=== PATIENT | male | born 1955 | race African-American/Black ===

== ENCOUNTER 2021-12-06 12:09 | Inpatient (IN) | payer MEDICARE, MEDICAID ==
[~2021-12-06] VITALS: Ht 175.3 cm; Wt 65.0 kg
--- NOTE | 2021-12-06 12:13 | PHYS DOC ---
Past Medical History Past Medical History: Anxiety, High Cholesterol, Heart Disease, Hypertension Past Medical History Congestive heart failure Smoking Status: Current Every Day Smoker Alcohol Use: Occasionally Drug Use: Cocaine General Adult EDM: Chief Complaint: SHORTNESS OF BREATH HPI: HPI: Patient is a 66 year old male who presents with multiple complaints. He reports that he has had lower extremity swelling for quite some time. He also has been complaining of shortness of breath for almost a year. He does report having a mild, dry cough, which she has had for over a year as well. He denies sputum production or hemoptysis. He denies any chest pain. He denies dizziness or diaphoresis. He denies abdominal pain, nausea or vomiting. He has a history of cardiomyopathy and congestive heart failure, he has previously been seen at [facility]. He last saw a physician and mergers and acquisitions consultant there in December 2020. He has not taken any of his medication since the end of December 2020. He reports that his family made him come in to be seen today because they are worried about his kidneys failing. He admits to smoking tobacco, and he frequently uses cocaine, last used 2 days ago. He has been intermittently using one of his family members "water pills" and he describes it as being likely 25 mg, so it sounds like he may be taking someone else's hydrochlorothiazide intermittently. Review of Systems: Review of Systems: Constitutional: Denies fever or chills. [] Eyes: Denies change in visual acuity. [] HENT: Denies nasal congestion or sore throat. [] Respiratory: Cough and dyspnea. No wheezing, sputum production or hemoptysis reported. Cardiovascular: Denies chest pain. Bilateral lower extremity edema. GI: Denies abdominal pain, nausea, vomiting : Denies urinary symptoms. Musculoskeletal: Denies back pain or joint pain. Lateral lower extremity swelling. Integument: Denies rash. [] Neurologic: Denies headache, focal weakness or sensory changes. [] Psychiatric: Anxiety as it pertains to current illness. Admits to cocaine use. Heart Score: C/O Chest Pain: No Risk Factors: Risk Factors: DM, Current or recent (<one month) smoker, HTN, HLP, family history of CAD, obesity. Risk Scores: Score 0 - 3: 2.5% MACE over next 6 weeks - Discharge Home Score 4 - 6: 20.3% MACE over next 6 weeks - Admit for Clinical Observation Score 7 - 10: 72.7% MACE over next 6 weeks - Early Invasive Strategies Physical Exam: PE: Constitutional: He is frail and chronically ill-appearing, appears older than stated age, he is mildly moderately acutely ill-appearing. HENT: Normocephalic, atraumatic, oropharynx is patent and clear Eyes: Conjunctiva normal, no discharge. No scleral icterus. Neck: Trachea is midline, neck is supple, JVD noted Cardiovascular: Irregularly irregular, tachycardic, +2 radial and +2 posterior tibial pulses bilaterally. Bilateral, symmetric lower extremity pitting edema noted. Lungs & Thorax: Tachypnea is noted. Bilateral fine rales noted in the bases and midlung estrada. No wheezes. No stridor. Speaks in full and clear sentences. No central cyanosis is noted. Abdomen: Abdomen is soft, mildly distended, no obvious ascites or fluid wave, hepatomegaly is noted, no tenderness to palpation. No palpable pulsatile mass. Skin: Warm, dry, no erythema, no rash. Or skin turgor. No jaundice. Back: No tenderness, no CVA tenderness. [] Extremities: Bilateral, symmetric 2+ lower extremity pitting edema. No periorbital or facial edema. No upper extremity edema. Neurologic: Alert and oriented X 3, normal motor function, normal sensory function, no focal deficits noted. [] Psychologic: He is anxious but cooperative. EKG: EKG: EKG is interpreted at 1231 Rhythm is irregularly irregular, AF with RVR Rate is 112 bpm Occasional PVCs LVH No STEMI EKG is interpreted at 1649 Rhythm is irrgularly irregular, AF Rate is 96 bpm LVH No STEMI Radiology/Procedures: Radiology/Procedures: IMAGING REPORT Signed PATIENT: AUBREY GARCIA ACCOUNT: [id number] : 1955 LOCATION: ER AGE: 66 SEX: M EXAM STATUS: REG ER ORD. PHYSICIAN: EL NAJERA DO REASON: dyspnea, cough PROCEDURE: PORTABLE CHEST 1V AP chest. HISTORY: Dyspnea, cough AP view was taken of the chest. Heart is enlarged. There is atherosclerotic magda nge of the aortic arch. There is a trace of pleural effusion on the right. There are interstitial infiltrates or pulmonary edema in the lungs more prominent on the right than on the left. IMPRESSION: 1. Cardiomegaly. 2. Trace right pleural effusion. 3. Interstitial infiltrates or edema. Electronically signed by: Vince Iraheta MD (12/06/2021 12:59 PM) [facility] DICTATED and SIGNED BY: VINCE IRAHETA MD DATE: 12/06/21 [id number] 0 Course & Med Decision Making: Course & Med Decision Making Pertinent Labs and Imaging studies reviewed. (See chart for details) IV diltiazem boluses given. Heart rate decreased to the 70s and 80s. Minimal improvement of blood pressure. Nitropaste is ordered. IV nitro glycerin drip is ordered. He is given a dose of IV furosemide. Initially, there appeared to be more modest improvement in blood pressure, but systolic blood pressure increased again to the 200s, so diltiazem drip is ordered. He is given a dose of oral aspirin. He manifests no evidence of hypoxia. I have ordered IV heparin protocol. I consulted Dr. Hahn of cardiology. He saw the patient. He recommends switching to subcu Lovenox, he changed the order and notify the nursing staff. The patient does appear to be resting more comfortably at this time. I have discussed all of the findings, differential diagnosis and plan of care with the patient. He is quite ill and requires hospitalization. He is comfortable with the plan of care. He is accepted for admission by Dr. Bhagat. Susie Disclaimer: Susie Disclaimer: This electronic medical record was generated, in whole or in part, using a voice recognition dictation system. Departure Departure Impression: Primary Impression: Hypertensive emergency Additional Impressions: Acute exacerbation of congestive heart failure Qualified Codes: I50.9 - Heart failure, unspecified Atrial fibrillation with RVR Elevated troponin level Noncompliance History of cocaine use Disposition: ADMITTED INPATIENT Admitting Physician: MARY (Dr. Bhagat) Condition: GUARDED REINALDOEL DO Dec 06, 2021 12:13
[2021-12-06] MEDS ORDERED: ASPIRIN ENTERIC COATED 325 MG TABLET.DR. PO ONE (12:45)
[2021-12-06] MEDS ORDERED: NITROGLYCERIN OINT 1 GM PACKET. TP ONE (12:45)
--- NOTE | 2021-12-06 13:01 | RAD ---
AP chest. HISTORY: Dyspnea, cough AP view was taken of the chest. Heart is enlarged. There is atherosclerotic change of the aortic arch . There is a trace of pleural effusion on the right. There are interstitial infiltrates or pulmonary edema in the lungs more prominent on the right than on the left. IMPRESSION: 1. Cardiomegaly. 2. Trace right pleural effusion. 3. Interstitial infiltrates or edema. Electronically signed by: Vince Iraheta MD (12/06/2021 12:59 PM) [facility]
[2021-12-06 13:26] LABS: BASO % 1 % (0-3); EOS # 0.1 x10^3/uL (0.0-0.7); EOS % 2 % (0-3); HEMATOCRIT 47.7 % (39.0-53.0); HEMOGLOBIN 15.6 g/dL (13.0-17.5); LYMPH # 1.6 x10^3/uL (1.0-4.8); LYMPH % 24 % (24-48); MEAN CORPUSCULAR HEMOGLOBIN 32 pg (25-35); MEAN CORPUSCULAR HGB CONC 33 g/dL (31-37); MEAN CORPUSCULAR VOLUME 97 fL (79-100); MONO # 0.5 x10^3/uL (0.0-1.1); MONO % 7 % (0-9); NEUT # 4.4 x10^3/uL (1.8-7.7); NEUT % 67 % (31-73); PLATELET COUNT 125 x10^3/uL (140-400); RED BLOOD COUNT 4.91 x10^6/uL (4.30-5.70); RED CELL DISTRIBUTION WIDTH 14.5 % (11.5-14.5); WHITE BLOOD COUNT 6.7 x10^3/uL (4.0-11.0)
[2021-12-06 13:37] LABS: CALCIUM 9.5 mg/dL (8.5-10.1); CREATININE 1.5 mg/dL (0.7-1.3); GFR 56.8; POTASSIUM 4.3 mmol/L (3.5-5.1)
[2021-12-06 13:43] LABS: INFLUENZA A PATIENT NEGATIVE (NEGATIVE); INFLUENZA B PATIENT NEGATIVE (NEGATIVE)
[2021-12-06 13:52] LABS: ALBUMIN 3.5 g/dL (3.4-5.0); ALBUMIN/GLOBULIN RATIO 0.8 (1.0-1.7); MAGNESIUM 2.1 mg/dL (1.8-2.4); TOTAL BILIRUBIN 1.5 mg/dL (0.2-1.0); TOTAL PROTEIN 7.9 g/dL (6.4-8.2)
[2021-12-06] MEDS ORDERED: NITROGLYCERIN PREMIX 250 ML IV ONE (14:15)
[2021-12-06] MEDS ORDERED: FUROSEMIDE 20 MG/2 ML VIAL. IVP ONE ×2 (14:15→18:45)
[2021-12-06] MEDS ORDERED: HEPARIN for IV BOLUS 10,000 UNIT/10 ML VIAL. IV PRN (15:15)
[2021-12-06] MEDS ORDERED: HEPARIN 25,000UTS/250ML PREMIX 250 ML IV PRN (15:15)
[2021-12-06 15:35] LABS: PROTHROMBIN TIME PATIENT 13.4 SEC (11.7-14.0)
--- NOTE | 2021-12-06 16:15 | PDOC1 ---
History and Physical Date of Service: DOS: DATE: 12/06/21 TIME: 16:10 Chief Complaint: Chief Complain: Multiple complaints History of Present Illness: HPI: Most of the history obtained from chart review and discussion with the ED physician due to patient's lethargy: 66-year-old male with past medical history of hypertension, heart disease, dyslipidemia, smoker who comes in with multiple complaints. Patient states that he had some lower extremity swelling for some time and shortness of breath for almost a year. Patient states that he does have history of CHF and cardiomyopathy which she was seen at [facility]. Patient states he has not taken any of his medications since end of December 2020. He has seen a technical coordinator at [facility]. His family actually encouraged him to come to get evaluated. He does admit that he does smoke frequently and he uses cocaine as well which was last used 2 days ago. Denies fevers, chest pain, shortness of breath, abdominal pain, diarrhea, dysuria, hematuria or syncope or palpitations. Past Medical/Surgical History: PMH/PSH: Past Medical History: Anxiety, High Cholesterol, Heart Disease, Hypertension Past Medical History: Congestive heart failure Allergies: Allergies: Coded Allergies: No Known Drug Allergies (Unverified , 12/06/21) Family History: Family History: Reviewed with no relevant findings Social History: Social History: Smoking Status: Current Every Day Smoker Alcohol Use: Occasionally Drug Use: Cocaine Current Medications: Current Medications Current Medications Nitroglycerin (Nitro-Bid Oint) 1 inch 1X ONCE TP Last administered on 12/06/21at 12:51; Start 12/06/21 at 12:45; Stop 12/06/21 at 12:46; Status DC Aspirin (Ecotrin) 325 mg 1X ONCE PO Last administered on 12/06/21at 12:59; Start 12/06/21 at 12:45; Stop 12/06/21 at 12:46; Status DC Lorazepam (Ativan Inj) 1 mg 1X ONCE IVP Last administered on 12/06/21at 12:59; Start 12/06/21 at 12:45; Stop 12/06/21 at 12:46; Status DC Diltiazem HCl (Cardizem Iv Push) 10 mg 1X ONCE IVP Last administered on 12/06at 13:46; Start 12/06/21 at 13:45; Stop 12/06/21 at 13:46; Status DC Furosemide (Lasix) 20 mg 1X ONCE IVP Last administered on 12/06/21at 15:14; Start 12/06/21 at 14:15; Stop 12/06/21 at 14:16; Status DC Nitroglycerin/ Dextrose 250 ml @ 1.5 mls/hr 1X ONCE IV Last administered on 12/06/21at 15:05; Start 12/06/21 at 14:15; Stop 12/13/21 at 12:54 Heparin Sodium/ Dextrose 250 ml @ 8.64 mls/hr CONT PRN IV PER PROTOCOL; Start 12/06/21 at 15:15 Heparin Sodium (Porcine) (Heparin Sodium) 1,800 unit PRN Q6HRS PRN IV FOR UFH LEVEL LESS THAN 0.2; Start 12/06/21 at 15:15 ROS: Review of Systems Review of System Limited due to patient's lethargy Physical Exam: Vital Signs: Vital Signs Date Time Temp Pulse Resp B/P (MAP) Pulse Ox O2 Delivery O2 Flow Rate FiO2 12/06/21 13:46 100 244/146 12/06/21 12:31 98.7 16 100 Room Air 98.7 Physcial Exam: General: Well developed, well nourished, lethargic HEENT: Pupils equally round and reactive to light, EOMI, no discharge, normal conjunctiva Neck: Supple, no nuchal rigidity, no JVD, trachea midline, no tenderness Cardiac: RRR, no murmurs, no gallops, no rubs Chest/Lungs: CTAB, no wheeze, no rhonchi, no crackles Abdomen: soft, non-distended, no guarding, no peritoneal signs, non-tender Back: No tenderness Extremities: +3 bilateral pedal edema, pulses intact, non-tender,capillary refill <3 sec bilateral upper and lower extremities, Neuro: Alert and oriented x 4, no focal deficits, normal speech Labs: Labs: Laboratory Tests Test 12/06/21 12:58 White Blood Count 6.7 x10^3/uL (4.0-11.0) Red Blood Count 4.91 x10^6/uL (4.30-5.70) Hemoglobin 15.6 g/dL (13.0-17.5) Hematocrit 47.7 % (39.0-53.0) Mean Corpuscular Volume 97 fL (79-100) Mean Corpuscular Hemoglobin 32 pg (25-35) Mean Corpuscular Hemoglobin Concent 33 g/dL (31-37) Red Cell Distribution Width 14.5 % (11.5-14.5) Platelet Count 125 x10^3/uL (140-400) Neutrophils (%) (Auto) 67 % (31-73) Lymphocytes (%) (Auto) 24 % (24-48) Monocytes (%) (Auto) 7 % (0-9) Eosinophils (%) (Auto) 2 % (0-3) Basophils (%) (Auto) 1 % (0-3) Neutrophils # (Auto) 4.4 x10^3/uL (1.8-7.7) Lymphocytes # (Auto) 1.6 x10^3/uL (1.0-4.8) Monocytes # (Auto) 0.5 x10^3/uL (0.0-1.1) Eosinophils # (Auto) 0.1 x10^3/uL (0.0-0.7) Basophils # (Auto) 0.0 x10^3/uL (0.0-0.2) Prothrombin Time 13.4 SEC (11.7-14.0) Prothromb Time International Ratio 1.0 (0.8-1.1) Activated Partial Thromboplast Time 29 SEC (24-38) Sodium Level 137 mmol/L (136-145) Potassium Level 4.3 mmol/L (3.5-5.1) Chloride Level 101 mmol/L (98-107) Carbon Dioxide Level 32 mmol/L (21-32) Anion Gap 4 (6-14) Blood Urea Nitrogen 40 mg/dL (8-26) Creatinine 1.5 mg/dL (0.7-1.3) Estimated GFR (Cockcroft-Gault) 56.8 BUN/Creatinine Ratio 27 (6-20) Glucose Level 89 mg/dL (70-99) Lactic Acid Level 1.6 mmol/L (0.4-2.0) Calcium Level 9.5 mg/dL (8.5-10.1) Magnesium Level 2.1 mg/dL (1.8-2.4) Total Bilirubin 1.5 mg/dL (0.2-1.0) Aspartate Amino Transf (AST/SGOT) 47 U/L (15-37) Alanine Aminotransferase (ALT/SGPT) 42 U/L (16-63) Alkaline Phosphatase 185 U/L (46-116) Creatine Kinase 176 U/L (39-308) Troponin I High Sensitivity 871 ng/L (4-75) FZ-Ueg-C-Type Natriuretic Peptide 73455 pg/mL (0-124) Total Protein 7.9 g/dL (6.4-8.2) Albumin 3.5 g/dL (3.4-5.0) Albumin/Globulin Ratio 0.8 (1.0-1.7) Influenza Type A Antigen Negative (NEGATIVE) Influenza Type B Antigen Negative (NEGATIVE) SARS-CoV-2 Antigen (Rapid) Negative (NEGATIVE) Laboratory Tests Test 12/06/21 12:58 White Blood Count 6.7 x10^3/uL (4.0-11.0) Red Blood Count 4.91 x10^6/uL (4.30-5.70) Hemoglobin 15.6 g/dL (13.0-17.5) Hematocrit 47.7 % (39.0-53.0) Mean Corpuscular Volume 97 fL (79-100) Mean Corpuscular Hemoglobin 32 pg (25-35) Mean Corpuscular Hemoglobin Concent 33 g/dL (31-37) Red Cell Distribution Width 14.5 % (11.5-14.5) Platelet Count 125 x10^3/uL (140-400) Neutrophils (%) (Auto) 67 % (31-73) Lymphocytes (%) (Auto) 24 % (24-48) Monocytes (%) (Auto) 7 % (0-9) Eosinophils (%) (Auto) 2 % (0-3) Basophils (%) (Auto) 1 % (0-3) Neutrophils # (Auto) 4.4 x10^3/uL (1.8-7.7) Lymphocytes # (Auto) 1.6 x10^3/uL (1.0-4.8) Monocytes # (Auto) 0.5 x10^3/uL (0.0-1.1) Eosinophils # (Auto) 0.1 x10^3/uL (0.0-0.7) Basophils # (Auto) 0.0 x10^3/uL (0.0-0.2) Prothrombin Time 13.4 SEC (11.7-14.0) Prothromb Time International Ratio 1.0 (0.8-1.1) Activated Partial Thromboplast Time 29 SEC (24-38) Sodium Level 137 mmol/L (136-145) Potassium Level 4.3 mmol/L (3.5-5.1) Chloride Level 101 mmol/L (98-107) Carbon Dioxide Level 32 mmol/L (21-32) Anion Gap 4 (6-14) Blood Urea Nitrogen 40 mg/dL (8-26) Creatinine 1.5 mg/dL (0.7-1.3) Estimated GFR (Cockcroft-Gault) 56.8 BUN/Creatinine Ratio 27 (6-20) Glucose Level 89 mg/dL (70-99) Lactic Acid Level 1.6 mmol/L (0.4-2.0) Calcium Level 9.5 mg/dL (8.5-10.1) Magnesium Level 2.1 mg/dL (1.8-2.4) Total Bilirubin 1.5 mg/dL (0.2-1.0) Aspartate Amino Transf (AST/SGOT) 47 U/L (15-37) Alanine Aminotransferase (ALT/SGPT) 42 U/L (16-63) Alkaline Phosphatase 185 U/L (46-116) Creatine Kinase 176 U/L (39-308) Troponin I High Sensitivity 871 ng/L (4-75) GO-Shk-P-Type Natriuretic Peptide 23779 pg/mL (0-124) Total Protein 7.9 g/dL (6.4-8.2) Albumin 3.5 g/dL (3.4-5.0) Albumin/Globulin Ratio 0.8 (1.0-1.7) Influenza Type A Antigen Negative (NEGATIVE) Influenza Type B Antigen Negative (NEGATIVE) SARS-CoV-2 Antigen (Rapid) Negative (NEGATIVE) Images: Images PROCEDURE: PORTABLE CHEST 1V AP chest. HISTORY: Dyspnea, cough AP view was taken of the chest. Heart is enlarged. There is atherosclerotic change of the aortic arch. There is a trace of pleural effusion on the right. There are interstitial infiltrates or pulmonary edema in the lungs more prominent on the right than on the left. IMPRESSION: 1. Cardiomegaly. 2. Trace right pleural effusion. 3. Interstitial infiltrates or edema. Assessment/Plan Assessment/Plan Problem List: Hypertensive urgency Afib RVR Acute GIB ANILA due to vasomotor nephropathy Elevated BNP suggestive of acute volume overload Acute CHF exacerbation Cocaine positivity Elevated troponin suggestive of type II demand ischemia Thrombocytopenia History of CHF, unknown EF History of hypertension History of cocaine and tobacco abuse Admit to hospitalist service for further management Continue nitro drip IV antihypertensive regimen to maintain systolic blood pressures between [id number] Continue telemetry monitoring Continue diltiazem Continue heparin drip for DVT prophylaxis Protonix GI prophylaxis Trend troponins Consider cardiology consult if rising troponins Cardiac diet CODE STATUS assumed full code Discussed with RN and SW Disposition inpatient management as above DPOA: Cousin A total of 45 minutes of critical care time was spent in reviewing chart, labs, and images. Discussed with RN and SW. Justifications for Admission Other Justification CALLIE SANDHU MD Dec 06, 2021 16:15
[2021-12-06] MEDS: LABETALOL 20 MG/4 ML DISP.SYRIN. IVP ONE ×2 (16:45→17:13)
[2021-12-06 17:45] VITALS: BP 144/86
[2021-12-06] MEDS ORDERED: ONDANSETRON PF 4 MG/2 ML VIAL. IVP PRN (18:45)
[2021-12-06] MEDS ORDERED: SENNOSIDES 8.6 MG TABLET PO PRN (18:45)
[2021-12-06] MEDS ORDERED: ACETAMINOPHEN 325 MG TABLET. PO PRN (18:45)
[2021-12-06] MEDS ORDERED: DOCUSATE SODIUM 100 MG CAPSULE. PO PRN (18:45)
[2021-12-06] MEDS ORDERED: diphenhydrAMINE 50 MG/ML VIAL IVP PRN (18:45)
[2021-12-06] MEDS ORDERED: diphenhydrAMINE HCL 25 MG CAPSULE PO PRN ×2 (18:45)
[2021-12-06] MEDS ORDERED: PROCHLORPERAZINE 10 MG/2 ML VIAL. IV PRN (18:45)
[2021-12-06] MEDS ORDERED: DEXTROSE 50% 25 GM / 50ML DISP.SYRIN. IV PRN (18:45)
[2021-12-06] MEDS ORDERED: ZOLPIDEM 5 MG TABLET. PO PRN (18:45)
[2021-12-06] MEDS ORDERED: LORazepam 0.5 MG TABLET PO PRN (18:45)
[2021-12-06 19:36] VITALS: BP 167/120
--- NOTE | 2021-12-06 21:33 | EKG ---
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
[2021-12-06 23:09] VITALS: BP 178/101
[2021-12-07 02:09] VITALS: BP 148/108
[2021-12-07 04:34] LABS: BASO # 0.1 x10^3/uL (0.0-0.2); BASO % 1 % (0-3); EOS # 0.1 x10^3/uL (0.0-0.7); EOS % 2 % (0-3); HEMATOCRIT 38.6 % (39.0-53.0); HEMOGLOBIN 12.9 g/dL (13.0-17.5); LYMPH # 1.4 x10^3/uL (1.0-4.8); LYMPH % 24 % (24-48); MEAN CORPUSCULAR HEMOGLOBIN 32 pg (25-35); MEAN CORPUSCULAR HGB CONC 33 g/dL (31-37); MEAN CORPUSCULAR VOLUME 96 fL (79-100); MONO # 0.5 x10^3/uL (0.0-1.1); MONO % 8 % (0-9); NEUT # 3.8 x10^3/uL (1.8-7.7); NEUT % 65 % (31-73); PLATELET COUNT 108 x10^3/uL (140-400); RED CELL DISTRIBUTION WIDTH 14.2 % (11.5-14.5); WHITE BLOOD COUNT 5.8 x10^3/uL (4.0-11.0)
[2021-12-07 05:30] LABS: CALCIUM 8.3 mg/dL (8.5-10.1); CREATININE 1.6 mg/dL (0.7-1.3); GFR 52.8; MAGNESIUM 1.8 mg/dL (1.8-2.4); PHOSPHORUS 3.8 mg/dL (2.6-4.7); POTASSIUM 4.3 mmol/L (3.5-5.1)
[2021-12-07] MEDS: NITROGLYCERIN PREMIX 250 ML IV PRN (05:33)
[2021-12-07 07:00] VITALS: BP 154/81
[2021-12-07] MEDS: PANTOPRAZOLE 40 MG TABLET.DR. PO SCH (09:43)
[2021-12-07 11:00] VITALS: BP 140/95
--- NOTE | 2021-12-07 13:08 | PDOC ---
CARDIOLOGY PROGRESS NOTE SUBJECTIVE: No acute events overnight. The patient remains somnolent. Denies any current chest pain or dyspnea. OBJECTIVE: Vital Signs/I&O: Vital Signs Date Time Temp Pulse Resp B/P (MAP) Pulse Ox O2 Delivery O2 Flow Rate FiO2 12/07/21 11:00 97.6 62 18 140/95 (110) 97 Room Air 97.6 I & O 12/06/21 12/06/21 12/07/21 15:00 23:00 07:00 Intake Total 210 ml 600 ml Output Total 1675 ml 525 ml Balance -1465 ml 75 ml Objective: In general he is sleepy but arousable Head and neck exam is unremarkable Cardiac irregular rhythm without any obvious murmurs rubs or gallops. Abdomen is soft outputted to light extremities no edema Neurologic exam deferred Musculoskeletal no trauma CURRENT MEDICATIONS: Current Medications Medications (Trade) Dose Ordered Sig/Isaias Route PRN Reason Start Time Stop Time Status Last Admin Dose Admin Diltiazem HCl (Cardizem Iv Push) 10 mg 1X ONCE IVP 12/06/21 13:45 12/06/21 13:46 DC 12/06/21 13:46 Furosemide (Lasix) 20 mg 1X ONCE IVP 12/06/21 14:15 12/06/21 14:16 DC 12/06/21 15:14 Nitroglycerin/ Dextrose 250 ml @ 1.5 mls/hr 1X ONCE IV 12/06/21 14:15 12/13/21 12:54 12/06/21 15:05 Diltiazem HCl 125 mg/Sodium Chloride 125 ml @ 5 mls/hr CONT PRN IV PER PROTOCOL 12/06/21 16:45 12/07/21 01:15 Pantoprazole Sodium (Protonix) 40 mg DAILYAC PO 12/07/21 07:30 12/07/21 09:43 Furosemide (Lasix) 20 mg 1X ONCE IVP 12/06/21 18:45 12/06/21 18:46 DC 12/06/21 19:42 Nitroglycerin/ Dextrose 250 ml @ 1.5 mls/hr CONT PRN IV SEE I/O RECORD 12/07/21 05:30 12/07/21 05:33 DIAGNOSTIC TESTING: Laboratory studies reviewed. Telemetry reviewed. Labs: Laboratory Tests 12/07/21 01:30 Laboratory Tests Test 12/07/21 01:00 12/07/21 01:30 Troponin I High Sensitivity 700 ng/L (4-75) H White Blood Count 5.8 x10^3/uL (4.0-11.0) Red Blood Count 4.00 x10^6/uL (4.30-5.70) L Hemoglobin 12.9 g/dL (13.0-17.5) L Hematocrit 38.6 % (39.0-53.0) L Mean Corpuscular Volume 96 fL (79-100) Mean Corpuscular Hemoglobin 32 pg (25-35) Mean Corpuscular Hemoglobin Concent 33 g/dL (31-37) Red Cell Distribution Width 14.2 % (11.5-14.5) Platelet Count 108 x10^3/uL (140-400) L Neutrophils (%) (Auto) 65 % (31-73) Lymphocytes (%) (Auto) 24 % (24-48) Monocytes (%) (Auto) 8 % (0-9) Eosinophils (%) (Auto) 2 % (0-3) Basophils (%) (Auto) 1 % (0-3) Neutrophils # (Auto) 3.8 x10^3/uL (1.8-7.7) Lymphocytes # (Auto) 1.4 x10^3/uL (1.0-4.8) Monocytes # (Auto) 0.5 x10^3/uL (0.0-1.1) Eosinophils # (Auto) 0.1 x10^3/uL (0.0-0.7) Basophils # (Auto) 0.1 x10^3/uL (0.0-0.2) Sodium Level 137 mmol/L (136-145) Potassium Level 4.3 mmol/L (3.5-5.1) Chloride Level 100 mmol/L (98-107) Carbon Dioxide Level 30 mmol/L (21-32) Anion Gap 7 (6-14) Blood Urea Nitrogen 43 mg/dL (8-26) H Creatinine 1.6 mg/dL (0.7-1.3) H Estimated GFR (Cockcroft-Gault) 52.8 Glucose Level 127 mg/dL (70-99) H Calcium Level 8.3 mg/dL (8.5-10.1) L Phosphorus Level 3.8 mg/dL (2.6-4.7) ASSESSMENT: 1. Acute hypertensive urgency 2. Atrial fibrillation with rapid ventricular response 3. Polysubstance abuse 4. Probable cardiomyopathy PLAN: 1. Continue Lasix for diuresis 2. Continue nitroglycerin and diltiazem drips. We will plan for an echocardiog yaniv tomorrow based on his EF we will plan for further treatment. 3. Supportive care for now Justicifation of Admission Dx: Justifications for Admission: Justification of Admission Dx: N/A TARAS JETER MD Dec 07, 2021 13:08
--- NOTE | 2021-12-07 13:13 | PDOC ---
[employer] PROGRESS NOTE Date of Service DOS: DATE: 12/07/21 TIME: 13:11 Chief Complaint Chief Complaint Problem List: Hypertensive urgency Afib RVR ANILA due to vasomotor nephropathy Elevated BNP suggestive of acute volume overload Acute CHF exacerbation Cocaine positivity Elevated troponin suggestive of type II demand ischemia Thrombocytopenia History of CHF, unknown EF History of hypertension History of cocaine and tobacco abuse Admit to hospitalist service for further management Continue nitro drip IV antihypertensive regimen to maintain systolic blood pressures between [id number] Continue telemetry monitoring Continue diltiazem Continue heparin drip for DVT prophylaxis Protonix GI prophylaxis Trend troponins Cardiology consult Cardiac diet CODE STATUS assumed full code Discussed with RN and SW Disposition inpatient management as above DPOA: Cousin History of Present Illness History of Present Illness 12/07 Patient evaluated and examined at bedside. He was resting in bed eating his lunch. No complaints to me. Still on several drips. Cards consulted. Blood pressure improved continue heparin drip. Also on nitro drip. Echo ordered. Vitals/I&O Vitals/I&O: Vital Signs Date Time Temp Pulse Resp B/P (MAP) Pulse Ox O2 Delivery O2 Flow Rate FiO2 12/07/21 11:00 97.6 62 18 140/95 (110) 97 Room Air 97.6 I & O 12/06/21 12/06/21 12/07/21 15:00 23:00 07:00 Intake Total 210 ml 600 ml Output Total 1675 ml 525 ml Balance -1465 ml 75 ml Physical Exam General: Alert, Oriented X3, Cooperative Heart: Regular rate, Normal S1, Normal S2 Lungs: Clear Abdomen: Normal bowel sounds, Soft, No tenderness Extremities: Other (lower extremity edema) Skin: No significant lesion Labs Labs: Laboratory Tests Test 12/07/21 01:00 12/07/21 01:30 Troponin I High Sensitivity 700 ng/L (4-75) White Blood Count 5.8 x10^3/uL (4.0-11.0) Red Blood Count 4.00 x10^6/uL (4.30-5.70) Hemoglobin 12.9 g/dL (13.0-17.5) Hematocrit 38.6 % (39.0-53.0) Mean Corpuscular Volume 96 fL (79-100) Mean Corpuscular Hemoglobin 32 pg (25-35) Mean Corpuscular Hemoglobin Concent 33 g/dL (31-37) Red Cell Distribution Width 14.2 % (11.5-14.5) Platelet Count 108 x10^3/uL (140-400) Neutrophils (%) (Auto) 65 % (31-73) Lymphocytes (%) (Auto) 24 % (24-48) Monocytes (%) (Auto) 8 % (0-9) Eosinophils (%) (Auto) 2 % (0-3) Basophils (%) (Auto) 1 % (0-3) Neutrophils # (Auto) 3.8 x10^3/uL (1.8-7.7) Lymphocytes # (Auto) 1.4 x10^3/uL (1.0-4.8) Monocytes # (Auto) 0.5 x10^3/uL (0.0-1.1) Eosinophils # (Auto) 0.1 x10^3/uL (0.0-0.7) Basophils # (Auto) 0.1 x10^3/uL (0.0-0.2) Sodium Level 137 mmol/L (136-145) Potassium Level 4.3 mmol/L (3.5-5.1) Chloride Level 100 mmol/L (98-107) Carbon Dioxide Level 30 mmol/L (21-32) Anion Gap 7 (6-14) Blood Urea Nitrogen 43 mg/dL (8-26) Creatinine 1.6 mg/dL (0.7-1.3) Estimated GFR (Cockcroft-Gault) 52.8 Glucose Level 127 mg/dL (70-99) Calcium Level 8.3 mg/dL (8.5-10.1) Phosphorus Level 3.8 mg/dL (2.6-4.7) Magnesium Level 1.8 mg/dL (1.8-2.4) Assessment and Plan Assessmemt and Plan Problems Medical Problems: (1) Acute exacerbation of congestive heart failure Status: Acute (2) Atrial fibrillation with RVR Status: Acute (3) Elevated troponin level Status: Acute (4) History of cocaine use Status: Acute (5) Hypertensive emergency Status: Acute (6) Noncompliance Status: Acute Comment Review of Relevant I have reviewed the following items liya (where applicable) has been applied. Medications: Current Medications Medications (Trade) Dose Ordered Sig/Isaias Route PRN Reason Start Time Stop Time Status Last Admin Dose Admin Diltiazem HCl (Cardizem Iv Push) 10 mg 1X ONCE IVP 12/06/21 13:45 12/06/21 13:46 DC 12/06/21 13:46 Furosemide (Lasix) 20 mg 1X ONCE IVP 12/06/21 14:15 12/06/21 14:16 DC 12/06/21 15:14 Nitroglycerin/ Dextrose 250 ml @ 1.5 mls/hr 1X ONCE IV 12/06/21 14:15 12/13/21 12:54 12/06/21 15:05 Diltiazem HCl 125 mg/Sodium Chloride 125 ml @ 5 mls/hr CONT PRN IV PER PROTOCOL 12/06/21 16:45 12/07/21 01:15 Pantoprazole Sodium (Protonix) 40 mg DAILYAC PO 12/07/21 07:30 12/07/21 09:43 Furosemide (Lasix) 20 mg 1X ONCE IVP 12/06/21 18:45 12/06/21 18:46 DC 12/06/21 19:42 Nitroglycerin/ Dextrose 250 ml @ 1.5 mls/hr CONT PRN IV SEE I/O RECORD 12/07/21 05:30 12/07/21 05:33 Justifications for Admission Other Justification PALAK DENT MD Dec 07, 2021 13:13
[2021-12-07] MEDS ORDERED: FUROSEMIDE 40 MG/4 ML VIAL. IVP ONE (13:30)
--- NOTE | 2021-12-07 13:31 | CONS ---
DATE OF CONSULTATION: 12/06/2021 REASON FOR CONSULTATION: Atrial fibrillation. HISTORY OF PRESENT ILLNESS: The patient is a 66-year-old man who has past medical history as noted below, who presented to the ER with shortness of breath and was found to have AFib with RVR. The patient admitted to cocaine use in the past and has known cardiomyopathy apparently and was previously taken care by [facility]. Nonetheless, due to his hypertension he was started on diltiazem drip and nitroglycerin drip and it has responded well. He has been admitted for further evaluation and treatment. PAST MEDICAL HISTORY: 1. Cardiomyopathy. 2. Polysubstance use. 3. Atrial fibrillation with rapid ventricular response. 4. Hypertension. 5. Dyslipidemia. SOCIAL HISTORY: As noted above, includes drug abuse. ALLERGIES: No known drug allergies. CURRENT CARDIOVASCULAR MEDICATIONS: Diltiazem, labetalol and nitroglycerin drip. REVIEW OF SYSTEMS: Unable to be obtained as the patient is mildly somnolent. PHYSICAL EXAMINATION: VITAL SIGNS: Blood pressure 200/100, heart rate 85, respiratory rate 12, pulse ox 95% on 2 liters nasal cannula. GENERAL: The patient is somnolent and unresponsive. HEAD AND NECK: Unremarkable. CARDIAC: Irregular rate and rhythm without any obvious murmurs, rubs or gallops. LUNGS: Notable for decreased breath sounds at the bases. ABDOMEN: Soft, nontender, nondistended. EXTREMITIES: No clubbing, cyanosis or edema. NEUROLOGIC: No focal deficits. MUSCULOSKELETAL: No trauma. LABORATORY DATA: Troponin 871 decreasing to 700. BNP 15,000. Creatinine 1.6. EKG demonstrates atrial fibrillation with rapid ventricular response. IMPRESSION: 1. Type 2 [id number] myocardial infarction likely in the setting of acute on chronic decompensated systolic and diastolic heart failure. 2. Atrial fibrillation with rapid ventricular response. 3. Polysubstance abuse. RECOMMENDATIONS: For this time we will continue diltiazem and Lasix drip and then determine further treatment. Supportive care for now. We will obtain records. Likely will need goal directed medical therapy depending on his outside hospital records. Obtain echocardiogram on Wednesday. Thank you for this consultation. KONRAD DR: Nydia TID: [id number]
[2021-12-07] MEDS ORDERED: SENNOSIDES/DOCUSATE 8.6/50MG TABLET. PO PRN (14:15)
[2021-12-07 15:00] VITALS: BP 137/94
[2021-12-07 19:28] VITALS: BP 182/116
[2021-12-07 22:39] VITALS: BP 159/105
[2021-12-07 22:55] LABS: BILIRUBIN,URINE NEGATIVE (NEG); CLARITY,URINE CLOUDY; COLOR,URINE YELLOW; NITRITE,URINE NEGATIVE (NEG); PH,URINE 7.5 (<5.0-8.0); PROTEIN,URINE NEGATIVE (NEG-TRACE)
[2021-12-07 23:00] LABS: BACTERIA,URINE 0 /HPF (0-FEW); RBC,URINE 0 /HPF (0-2); WBC,URINE OCC /HPF (0-4)
[2021-12-07 23:01] LABS: BARBITURATES NEG (NEG); BENZODIAZEPINES NEG (NEG); CANNABINOIDS NEG (NEG); COCAINE POS (NEG); METHADONE NEG (NEG); OPIATES NEG (NEG); PHENCYCLIDINE NEG (NEG)
[2021-12-07 23:06] LABS: AMPHETAMINE/METHAMPHETAMINE NEG (NEG)
--- NOTE | 2021-12-08 01:09 | EKG ---
[address] [place] [address] Test Date: 2021-12-06 Test Time: 16:46:16 Pat Name: AUBREY GARCIA Department: Room: [facility] Gender: M Insights Strategist: : 1955 Requested By: EL NAJERA Order Number: [id number] Reading MD: John De Anda Measurements Intervals [place] Rate: 96 P: [place]: QRS: 42 QRSD: 84 T: 244 QT: 354 QTc: 454 Interpretive Statements ATRIAL FIBRILLATION LVH WITH REPOLARIZATION LATERAL T WAVE DEPRESSION Electronically Signed On 12-11-2021 14:23:44 [employer]OLATE FINISHER by John De Anda
[2021-12-08 02:49] VITALS: BP 148/97
[2021-12-08] MEDS: NITROGLYCERIN PREMIX 250 ML IV PRN (05:03)
[2021-12-08 05:28] LABS: CALCIUM 7.9 mg/dL (8.5-10.1); CREATININE 1.5 mg/dL (0.7-1.3); GFR 56.8; MAGNESIUM 1.6 mg/dL (1.8-2.4); POTASSIUM 3.6 mmol/L (3.5-5.1)
[2021-12-08 05:35] LABS: BASO % 1 % (0-3); EOS # 0.1 x10^3/uL (0.0-0.7); EOS % 1 % (0-3); HEMOGLOBIN 12.9 g/dL (13.0-17.5); LYMPH # 1.2 x10^3/uL (1.0-4.8); LYMPH % 19 % (24-48); MEAN CORPUSCULAR HEMOGLOBIN 32 pg (25-35); MEAN CORPUSCULAR HGB CONC 33 g/dL (31-37); MEAN CORPUSCULAR VOLUME 96 fL (79-100); MONO # 0.5 x10^3/uL (0.0-1.1); MONO % 8 % (0-9); NEUT # 4.7 x10^3/uL (1.8-7.7); NEUT % 72 % (31-73); PLATELET COUNT 115 x10^3/uL (140-400); RED BLOOD COUNT 4.08 x10^6/uL (4.30-5.70); RED CELL DISTRIBUTION WIDTH 14.2 % (11.5-14.5); WHITE BLOOD COUNT 6.5 x10^3/uL (4.0-11.0)
[2021-12-08 07:29] VITALS: BP 156/98
[2021-12-08] MEDS: PANTOPRAZOLE 40 MG TABLET.DR. PO SCH (08:56)
[2021-12-08] MEDS ORDERED: MAGNESIUM SULFATE 2GM 50 ML IV ONE (10:15)
--- NOTE | 2021-12-08 10:21 | PDOC ---
[employer] PROGRESS NOTE Date of Service DOS: DATE: 12/08/21 TIME: 10:19 Chief Complaint Chief Complaint Hypertensive urgency Afib RVR ANILA due to vasomotor nephropathy Elevated BNP suggestive of acute volume overload Acute CHF exacerbation Cocaine positivity Elevated troponin suggestive of type II demand ischemia Thrombocytopenia History of CHF, unknown EF History of hypertension History of cocaine and tobacco abuse Admit to hospitalist service for further management IV antihypertensive regimen to maintain systolic blood pressures between [id number] Continue telemetry monitoring Continue diltiazem Continue heparin drip for DVT prophylaxis Protonix GI prophylaxis Trend troponins Cardiology consult Cardiac diet CODE STATUS assumed full code Discussed with RN and SW Disposition inpatient management as above DPOA: Cousin History of Present Illness History of Present Illness 12/07: Patient evaluated and examined at bedside. He was resting in bed eating his lunch. No complaints to me. Still on several drips. Cards consulted. Blood pressure improved continue heparin drip. Also on nitro drip. Echo ordered. 12/08: Seen bedside. Chest pain resolving. No shortness of breath. BP still up. Creatinine 1.5, NA 132, mag 1.6, high-sensitivity troponin came down to 700, heart rate in the low 80s looks like underlying flutter rhythm on Cardizem 5 mg/hr IV. Will transition to PO cardizem. Vitals/I&O Vitals/I&O: Vital Signs Date Time Temp Pulse Resp B/P (MAP) Pulse Ox O2 Delivery O2 Flow Rate FiO2 12/08/21 08:00 Room Air 12/08/21 07:29 97.8 85 18 156/98 (117) 97 97.8 I & O 12/07/21 12/07/21 12/08/21 15:00 23:00 07:00 Intake Total 220 ml 200 ml 300 ml Output Total 500 ml 1100 ml Balance 220 ml -300 ml -800 ml Physical Exam General: Alert, Oriented X3, Cooperative Heart: Regular rate, Normal S1, Normal S2 Lungs: Clear Abdomen: Normal bowel sounds, Soft, No tenderness Extremities: Other (lower extremity edema) Skin: No significant lesion Labs Labs: Laboratory Tests Test 12/07/21 22:45 12/08/21 04:35 Urine Collection Type Unknown Urine Color Yellow Urine Clarity Cloudy Urine pH 7.5 (<5.0-8.0) Urine Specific [place] 1.010 (1.000-1.030) Urine Protein Negative mg/dL (NEG-TRACE) Urine Glucose (UA) Negative mg/dL (NEG) Urine Ketones (Stick) Negative mg/dL (NEG) Urine Blood Negative (NEG) Urine Nitrite Negative (NEG) Urine Bilirubin Negative (NEG) Urine Urobilinogen Dipstick 1.0 mg/dL (0.2 mg/dL) Urine Leukocyte Esterase Negative (NEG) Urine RBC 0 /HPF (0-2) Urine WBC Occ /HPF (0-4) Urine Squamous Epithelial Cells Occ /LPF Urine Bacteria 0 /HPF (0-FEW) Urine Opiates Screen Neg (NEG) Urine Methadone Screen Neg (NEG) Urine Barbiturates Neg (NEG) Urine Phencyclidine Screen Neg (NEG) Urine Amphetamine/Methamphetamine Neg (NEG) Urine Benzodiazepines Screen Neg (NEG) Urine Cocaine Screen Pos (NEG) Urine Cannabinoids Screen Neg (NEG) Urine Ethyl Alcohol Neg (NEG) White Blood Count 6.5 x10^3/uL (4.0-11.0) Red Blood Count 4.08 x10^6/uL (4.30-5.70) Hemoglobin 12.9 g/dL (13.0-17.5) Hematocrit 39.0 % (39.0-53.0) Mean Corpuscular Volume 96 fL (79-100) Mean Corpuscular Hemoglobin 32 pg (25-35) Mean Corpuscular Hemoglobin Concent 33 g/dL (31-37) Red Cell Distribution Width 14.2 % (11.5-14.5) Platelet Count 115 x10^3/uL (140-400) Neutrophils (%) (Auto) 72 % (31-73) Lymphocytes (%) (Auto) 19 % (24-48) Monocytes (%) (Auto) 8 % (0-9) Eosinophils (%) (Auto) 1 % (0-3) Basophils (%) (Auto) 1 % (0-3) Neutrophils # (Auto) 4.7 x10^3/uL (1.8-7.7) Lymphocytes # (Auto) 1.2 x10^3/uL (1.0-4.8) Monocytes # (Auto) 0.5 x10^3/uL (0.0-1.1) Eosinophils # (Auto) 0.1 x10^3/uL (0.0-0.7) Basophils # (Auto) 0.0 x10^3/uL (0.0-0.2) Sodium Level 132 mmol/L (136-145) Potassium Level 3.6 mmol/L (3.5-5.1) Chloride Level 97 mmol/L (98-107) Carbon Dioxide Level 30 mmol/L (21-32) Anion Gap 5 (6-14) Blood Urea Nitrogen 32 mg/dL (8-26) Creatinine 1.5 mg/dL (0.7-1.3) Estimated GFR (Cockcroft-Gault) 56.8 Glucose Level 103 mg/dL (70-99) Calcium Level 7.9 mg/dL (8.5-10.1) Magnesium Level 1.6 mg/dL (1.8-2.4) Assessment and Plan Assessmemt and Plan Problems Medical Problems: (1) Acute exacerbation of congestive heart failure Status: Acute (2) Atrial fibrillation with RVR Status: Acute (3) Elevated troponin level Status: Acute (4) History of cocaine use Status: Acute (5) Hypertensive emergency Status: Acute (6) Noncompliance Status: Acute Comment Review of Relevant I have reviewed the following items liya (where applicable) has been applied. Medications: Current Medications Medications (Trade) Dose Ordered Sig/Isaias Route PRN Reason Start Time Stop Time Status Last Admin Dose Admin Furosemide (Lasix) 40 mg 1X ONCE IVP 12/07/21 13:30 12/07/21 13:31 DC 12/07/21 14:48 Senna/Docusate Sodium (Senna Plus) 1 tab PRN BID PRN PO CONSTIPATION 12/07/21 14:15 12/07/21 14:48 Justifications for Admission Other Justification PALAK ANDERSON MD Dec 08, 2021 10:21
[2021-12-08] MEDS ORDERED: hydrALAZINE 20 MG/ML VIAL. IVP PRN (10:30)
--- NOTE | 2021-12-08 10:30 | NUR ---
SS following for discharge planning. SS reviewed pt chart and discussed with pt RN. Pt is from home and is currently on room air. COVID19 negative. Cardiology consulted. Cardizem and Nitro drip. ECHO ordered. Discharge plan is currently to home when medically ready for discharge. SS will continue to follow for discharge planning.
[2021-12-08 10:45] VITALS: BP 163/89
--- NOTE | 2021-12-08 10:53 | PDOC ---
ARDEN WISE [facility] [employer] 12/08/21 1053: CARDIO Progress Notes Date and Time Date of Service 12/08/21 Time of Evaluation 1050 Subjective Subjective: No Chest Pain, No shortness of breath, No Palpitations Vitals Vitals Vital Signs Date Time Temp Pulse Resp B/P (MAP) Pulse Ox O2 Delivery O2 Flow Rate FiO2 12/08/21 10:45 99.0 81 18 163/89 (113) 97 Room Air 99.0 Weight Weight [ ] Input and Output Intake and Output Intake and Output 12/08/21 07:00 Intake Total 720 ml Output Total 1600 ml Balance -880 ml Intake Oral 720 ml Output Urine Total 1600 ml Laboratory Labs Laboratory Tests Test 12/07/21 22:45 12/08/21 04:35 Urine Collection Type Unknown Urine Color Yellow Urine Clarity Cloudy Urine pH 7.5 (<5.0-8.0) Urine Specific [place] 1.010 (1.000-1.030) Urine Protein Negative mg/dL (NEG-TRACE) Urine Glucose (UA) Negative mg/dL (NEG) Urine Ketones (Stick) Negative mg/dL (NEG) Urine Blood Negative (NEG) Urine Nitrite Negative (NEG) Urine Bilirubin Negative (NEG) Urine Urobilinogen Dipstick 1.0 mg/dL (0.2 mg/dL) Urine Leukocyte Esterase Negative (NEG) Urine RBC 0 /HPF (0-2) Urine WBC Occ /HPF (0-4) Urine Squamous Epithelial Cells Occ /LPF Urine Bacteria 0 /HPF (0-FEW) Urine Opiates Screen Neg (NEG) Urine Methadone Screen Neg (NEG) Urine Barbiturates Neg (NEG) Urine Phencyclidine Screen Neg (NEG) Urine Amphetamine/Methamphetamine Neg (NEG) Urine Benzodiazepines Screen Neg (NEG) Urine Cocaine Screen Pos (NEG) Urine Cannabinoids Screen Neg (NEG) Urine Ethyl Alcohol Neg (NEG) White Blood Count 6.5 x10^3/uL (4.0-11.0) Red Blood Count 4.08 x10^6/uL (4.30-5.70) Hemoglobin 12.9 g/dL (13.0-17.5) Hematocrit 39.0 % (39.0-53.0) Mean Corpuscular Volume 96 fL (79-100) Mean Corpuscular Hemoglobin 32 pg (25-35) Mean Corpuscular Hemoglobin Concent 33 g/dL (31-37) Red Cell Distribution Width 14.2 % (11.5-14.5) Platelet Count 115 x10^3/uL (140-400) Neutrophils (%) (Auto) 72 % (31-73) Lymphocytes (%) (Auto) 19 % (24-48) Monocytes (%) (Auto) 8 % (0-9) Eosinophils (%) (Auto) 1 % (0-3) Basophils (%) (Auto) 1 % (0-3) Neutrophils # (Auto) 4.7 x10^3/uL (1.8-7.7) Lymphocytes # (Auto) 1.2 x10^3/uL (1.0-4.8) Monocytes # (Auto) 0.5 x10^3/uL (0.0-1.1) Eosinophils # (Auto) 0.1 x10^3/uL (0.0-0.7) Basophils # (Auto) 0.0 x10^3/uL (0.0-0.2) Sodium Level 132 mmol/L (136-145) Potassium Level 3.6 mmol/L (3.5-5.1) Chloride Level 97 mmol/L (98-107) Carbon Dioxide Level 30 mmol/L (21-32) Anion Gap 5 (6-14) Blood Urea Nitrogen 32 mg/dL (8-26) Creatinine 1.5 mg/dL (0.7-1.3) Estimated GFR (Cockcroft-Gault) 56.8 Glucose Level 103 mg/dL (70-99) Calcium Level 7.9 mg/dL (8.5-10.1) Magnesium Level 1.6 mg/dL (1.8-2.4) Microbiology Micro Microbiology 12/07/21 Blood Culture - Preliminary, Resulted NO GROWTH AFTER 1 DAY Physical Exam HEENT: Neck Supple W Full Motion Chest: Symmetric LUNGS: Other (diminished bases) Heart: irregularly irregular (AFIB, rate controlled ) Abdomen: Soft N/T Extremities: Other (1+ bilateral LE edema ) Neurology: alert, oriented, follow commands Assessment Assessment 1. NSTEMI; most probable type II, demand ischemia in setting of a/c CHF, accelerated HTN, and AFIB with RVR 2. Acute on chronic CHF with possible systolic dysfunction 3. AFIB with RVR; on Cardizem gtt. Remains in AFIB. rate controlled. Oral Cardizem initiated 4. Accelerated HTN; on nitro gtt 5. Probable CKD 6. Polysubstance abuse. 7. Hypomagnesemia; replaced Recommendations Echo to assess LV systolic function Would convert Cardizem to Toprol if CMP noted Add lisinopril for BP control Titrate off nitro gtt Lasix therapy Add Eliquis for stroke prophylaxis Discussed/encouraged cessation from recreational drug use Justicifation of Admission Dx: Justifications for Admission: Justification of Admission Dx: N/A TARAS JETER MD 12/08/21 1725: CARDIO Progress Notes Plan Plan The patient was seen and interviewed as well as examined at the bedside. The chart was reviewed. The case was discussed. Agree with the plan of care. I discussed with the patient regarding his cardiomyopathy issues. I looked at his prior medications which included carvedilol, Lasix, hydralazine, Imdur, Xarelto. We will restart his medications. Await echocardiogram here. Supportive care. ARDEN WISE APRN Dec 08, 2021 10:53 TARAS JETER MD Dec 08, 2021 17:25
[2021-12-08 14:38] VITALS: BP 180/103
[2021-12-08] MEDS: ISOSORBIDE MONONITRATE ER 30 MG TAB.ER.24H PO SCH (15:06)
[2021-12-08] MEDS: FUROSEMIDE 40 MG TABLET. PO SCH (15:06)
[2021-12-08] MEDS: LISINOPRIL 20 MG TABLET PO SCH (17:31)
[2021-12-08 19:45] VITALS: BP 173/106
[2021-12-08] MEDS: APIXABAN 5 MG TABLET. PO SCH (21:45)
[2021-12-08 23:10] VITALS: BP 157/104
[2021-12-09] VITALS (7 sets, daily range): BP systolic 126–176; BP diastolic 82–108
[2021-12-09 06:20] LABS: BASO # 0.1 x10^3/uL (0.0-0.2); BASO % 1 % (0-3); CALCIUM 7.7 mg/dL (8.5-10.1); CREATININE 1.4 mg/dL (0.7-1.3); EOS # 0.1 x10^3/uL (0.0-0.7); EOS % 1 % (0-3); GFR 61.5; HEMATOCRIT 40.9 % (39.0-53.0); HEMOGLOBIN 13.6 g/dL (13.0-17.5); LYMPH # 1.6 x10^3/uL (1.0-4.8); LYMPH % 24 % (24-48); MEAN CORPUSCULAR HEMOGLOBIN 32 pg (25-35); MEAN CORPUSCULAR HGB CONC 33 g/dL (31-37); MEAN CORPUSCULAR VOLUME 95 fL (79-100); MONO # 0.6 x10^3/uL (0.0-1.1); MONO % 9 % (0-9); NEUT # 4.3 x10^3/uL (1.8-7.7); NEUT % 65 % (31-73); PLATELET COUNT 130 x10^3/uL (140-400); POTASSIUM 3.6 mmol/L (3.5-5.1); RED BLOOD COUNT 4.29 x10^6/uL (4.30-5.70); RED CELL DISTRIBUTION WIDTH 14.1 % (11.5-14.5); WHITE BLOOD COUNT 6.6 x10^3/uL (4.0-11.0)
[2021-12-09] MEDS: APIXABAN 5 MG TABLET. PO SCH (08:48)
[2021-12-09] MEDS: FUROSEMIDE 40 MG TABLET. PO SCH (08:48)
[2021-12-09] MEDS: METOPROLOL SUCC 24HR ER 50 MG TAB.ER.24H. PO SCH (08:49)
[2021-12-09] MEDS: PANTOPRAZOLE 40 MG TABLET.DR. PO SCH (08:49)
[2021-12-09] MEDS: ISOSORBIDE MONONITRATE ER 30 MG TAB.ER.24H PO SCH (08:49)
[2021-12-09] MEDS: LISINOPRIL 20 MG TABLET PO SCH (08:49)
--- NOTE | 2021-12-09 10:06 | PDOC ---
ARD[facility] WISE [employer] SPECIALIST 12/09/21 1006: CARDIO Progress Notes Date and Time Date of Service 12/09/21 Time of Evaluation 1005 Subjective Subjective: No Chest Pain, No shortness of breath, No Palpitations Vitals Vitals Vital Signs Date Time Temp Pulse Resp B/P (MAP) Pulse Ox O2 Delivery O2 Flow Rate FiO2 12/09/21 08:49 80 160/94 12/09/21 07:36 98.1 18 97 Room Air 98.1 12/08/21 20:29 2.0 Weight Weight [ ] Input and Output Intake and Output Intake and Output 12/09/21 07:00 Intake Total 1400 ml Output Total 2375 ml Balance -975 ml Intake Oral 1400 ml Output Urine Total 2375 ml # Bowel Movements 1 Laboratory Labs Laboratory Tests Test 12/09/21 05:20 White Blood Count 6.6 x10^3/uL (4.0-11.0) Red Blood Count 4.29 x10^6/uL (4.30-5.70) Hemoglobin 13.6 g/dL (13.0-17.5) Hematocrit 40.9 % (39.0-53.0) Mean Corpuscular Volume 95 fL (79-100) Mean Corpuscular Hemoglobin 32 pg (25-35) Mean Corpuscular Hemoglobin Concent 33 g/dL (31-37) Red Cell Distribution Width 14.1 % (11.5-14.5) Platelet Count 130 x10^3/uL (140-400) Neutrophils (%) (Auto) 65 % (31-73) Lymphocytes (%) (Auto) 24 % (24-48) Monocytes (%) (Auto) 9 % (0-9) Eosinophils (%) (Auto) 1 % (0-3) Basophils (%) (Auto) 1 % (0-3) Neutrophils # (Auto) 4.3 x10^3/uL (1.8-7.7) Lymphocytes # (Auto) 1.6 x10^3/uL (1.0-4.8) Monocytes # (Auto) 0.6 x10^3/uL (0.0-1.1) Eosinophils # (Auto) 0.1 x10^3/uL (0.0-0.7) Basophils # (Auto) 0.1 x10^3/uL (0.0-0.2) Sodium Level 134 mmol/L (136-145) Potassium Level 3.6 mmol/L (3.5-5.1) Chloride Level 100 mmol/L (98-107) Carbon Dioxide Level 29 mmol/L (21-32) Anion Gap 5 (6-14) Blood Urea Nitrogen 29 mg/dL (8-26) Creatinine 1.4 mg/dL (0.7-1.3) Estimated GFR (Cockcroft-Gault) 61.5 Glucose Level 93 mg/dL (70-99) Calcium Level 7.7 mg/dL (8.5-10.1) Magnesium Level 2.0 mg/dL (1.8-2.4) Microbiology Micro Microbiology 12/07/21 Blood Culture - Preliminary, Resulted NO GROWTH AFTER 2 DAYS Physical Exam HEENT: Neck Supple W Full Motion Chest: Symmetric LUNGS: Other (diminished bases) Heart: irregularly irregular (AFIB/flutter, rate controlled ) Abdomen: Soft N/T Extremities: Other (trace bilateral LE edema ) Neurology: alert, oriented, follow commands Assessment Assessment 1. NSTEMI; most probable type II, demand ischemia in setting of a/c CHF, accelerated HTN, and AFIB with RVR 2. Acute on chronic CHF with possible systolic dysfunction 3. AFIB with RVR; Remains in AFIB. rate controlled. 4. Accelerated HTN; mildly elevated 5. Suspected cardiomyopathy 6. CKD 7. Polysubstance abuse. Recommendations Echo today Toprol for rate control HF, optimization Lasix therapy Continue hydralazine, lisinopril. Will increase imdur Resume Xarelto for stroke prophylaxis (patient previously took at home) Reinforced importance of cessation from recreational drug use Justicifation of Admission Dx: Justifications for Admission: Justification of Admission Dx: N/A TARAS JETER MD 12/09/21 1641: CARDIO Progress Notes Plan Plan The patient was seen and interviewed as well as examined at the bedside. The chart was reviewed. The case was discussed. Agree with the plan of care. Echo with severe LVH and mild LV dysfunction. Continue medical therapy, discussed with Dr. Lockhart. Ok to DC home. Will f/u in the office and if he refrains from drug use, can consider MARIA L/CVN. Thanks ARDEN WISE APRN Dec 09, 2021 10:06 TARAS JETER MD Dec 09, 2021 16:41
--- NOTE | 2021-12-09 12:59 | NUR ---
SS following up with discharge planning. SS reviewed pt chart and discussed with pt RN. Pt is currently on room air. COVID19 negative. Cardiology following. Discharge plan is currently to home when medically ready for discharge. SS will continue to follow for discharge planning.
[2021-12-09] MEDS ORDERED: ISOSORBIDE MONONITRATE ER 30 MG TAB.ER.24H PO ONE (13:00)
--- NOTE | 2021-12-09 14:23 | PDOC ---
[employer] PROGRESS NOTE Date of Service DOS: DATE: 12/09/21 TIME: 14:15 Chief Complaint Chief Complaint Hypertensive urgency Afib RVR ANILA due to vasomotor nephropathy Elevated BNP suggestive of acute volume overload Acute CHF exacerbation Cocaine positivity Elevated troponin suggestive of type II demand ischemia Thrombocytopenia History of CHF, unknown EF History of hypertension History of cocaine and tobacco abuse Admit to hospitalist service for further management IV antihypertensive regimen to maintain systolic blood pressures between [id number] Continue telemetry monitoring Continue diltiazem Continue heparin drip for DVT prophylaxis Protonix GI prophylaxis Trend troponins Cardiology consult Cardiac diet CODE STATUS assumed full code Discussed with RN and SW Disposition inpatient management as above DPOA: Cousin History of Present Illness History of Present Illness 12/07: Patient evaluated and examined at bedside. He was resting in bed eating his lunch. No complaints to me. Still on several drips. Cards consulted. Blood pressure improved continue heparin drip. Also on nitro drip. Echo ordered. 12/08: Seen bedside. Chest pain resolving. No shortness of breath. BP still up. Creatinine 1.5, NA 132, mag 1.6, high-sensitivity troponin came down to 700, heart rate in the low 80s looks like underlying flutter rhythm on Cardizem 5 mg/hr IV. transitioned to PO cardizem then cardiology reconciled his medications appropriately and found that he was on carvedilol 25 mg twice daily, Imdur, hydralazine, Xarelto. Transition to Toprol-XL. 12/09: No chest pain. BP better controlled. Await echocardiogram. Transition back to home meds but changed to Toprol-XL instead of carvedilol. He notes his Imdur and Xarelto were over $500 and he did not want to pay for them. Vitals/I&O Vitals/I&O: Vital Signs Date Time Temp Pulse Resp B/P (MAP) Pulse Ox O2 Delivery O2 Flow Rate FiO2 12/09/21 10:04 98.3 71 20 149/93 (111) 95 Room Air 98.3 12/08/21 20:29 2.0 I & O 12/08/21 12/08/21 12/09/21 15:00 23:00 07:00 Intake Total 800 ml 600 ml Output Total 1150 ml 200 ml 1025 ml Balance -350 ml -200 ml -425 ml Physical Exam General: Alert, Oriented X3, Cooperative Heart: Regular rate, Normal S1, Normal S2 Lungs: Clear Abdomen: Normal bowel sounds, Soft, No tenderness Extremities: Other (lower extremity edema) Skin: No significant lesion Labs Labs: Laboratory Tests Test 12/09/21 05:20 White Blood Count 6.6 x10^3/uL (4.0-11.0) Red Blood Count 4.29 x10^6/uL (4.30-5.70) Hemoglobin 13.6 g/dL (13.0-17.5) Hematocrit 40.9 % (39.0-53.0) Mean Corpuscular Volume 95 fL (79-100) Mean Corpuscular Hemoglobin 32 pg (25-35) Mean Corpuscular Hemoglobin Concent 33 g/dL (31-37) Red Cell Distribution Width 14.1 % (11.5-14.5) Platelet Count 130 x10^3/uL (140-400) Neutrophils (%) (Auto) 65 % (31-73) Lymphocytes (%) (Auto) 24 % (24-48) Monocytes (%) (Auto) 9 % (0-9) Eosinophils (%) (Auto) 1 % (0-3) Basophils (%) (Auto) 1 % (0-3) Neutrophils # (Auto) 4.3 x10^3/uL (1.8-7.7) Lymphocytes # (Auto) 1.6 x10^3/uL (1.0-4.8) Monocytes # (Auto) 0.6 x10^3/uL (0.0-1.1) Eosinophils # (Auto) 0.1 x10^3/uL (0.0-0.7) Basophils # (Auto) 0.1 x10^3/uL (0.0-0.2) Sodium Level 134 mmol/L (136-145) Potassium Level 3.6 mmol/L (3.5-5.1) Chloride Level 100 mmol/L (98-107) Carbon Dioxide Level 29 mmol/L (21-32) Anion Gap 5 (6-14) Blood Urea Nitrogen 29 mg/dL (8-26) Creatinine 1.4 mg/dL (0.7-1.3) Estimated GFR (Cockcroft-Gault) 61.5 Glucose Level 93 mg/dL (70-99) Calcium Level 7.7 mg/dL (8.5-10.1) Magnesium Level 2.0 mg/dL (1.8-2.4) Assessment and Plan Assessmemt and Plan Problems Medical Problems: (1) Acute exacerbation of congestive heart failure Status: Acute (2) Atrial fibrillation with RVR Status: Acute (3) Elevated troponin level Status: Acute (4) History of cocaine use Status: Acute (5) Hypertensive emergency Status: Acute (6) Noncompliance Status: Acute Comment Review of Relevant I have reviewed the following items liya (where applicable) has been applied. Medications: Current Medications Medications (Trade) Dose Ordered Sig/Isaias Route PRN Reason Start Time Stop Time Status Last Admin Dose Admin Metoprolol Succinate (Toprol Xl) 50 mg DAILY PO 12/09/21 09:00 12/09/21 08:49 Lisinopril (Prinivil) 20 mg DAILY PO 12/08/21 16:00 12/09/21 08:49 Apixaban (Eliquis) 5 mg BID PO 12/08/21 21:00 12/09/21 12:57 DC 12/09/21 08:48 Justifications for Admission Other Justification PALAK ANDERSON MD Dec 09, 2021 14:23
[2021-12-09] MEDS: RIVAROXABAN 10 MG TABLET. PO SCH (16:56)
[2021-12-10 03:20] VITALS: BP 154/100
[2021-12-10] MEDS: PANTOPRAZOLE 40 MG TABLET.DR. PO SCH (05:56)
--- NOTE | 2021-12-10 08:30 | CARD ---
MR#: [id number] Date of Study: 12/09/2021 Ordering Physician: TARAS JETER, Referring Physician: TARAS JETER, Tech: Navin Samuels [facility] APPROVED REPORT EXAM: Two-dimensional and M-mode echocardiogram with Doppler and color Doppler. Other Information Quality : GoodHR: 75bpm Rhythm : NSR INDICATION Dyspnea 2D DIMENSIONS Left Atrium(2D)4.9 (1.6-4.0cm)IVSd1.9 (0.7-1.1cm) Aortic Root(2D)2.9 (2.0-3.7cm)LVDd4.2 (3.9-5.9cm) LVOT Diameter2.0 (1.8-2.4cm)PWd1.9 (0.7-1.1cm) LVDs3.7 (2.5-4.0cm)FS (%) 12.2 % SV20.4 mlLVEF(%)26.6 (>50%) Aortic Valve AoV Peak Simeon.137.0cm/sAoV VTI21.2cm AO Peak GR.7.5mmHgLVOT Peak Simeon.93.2cm/s AO Mean GR.4mmHgAVA (VMAX)2.16cm2 Mitral Valve MV E Lzwjpkqu388.5cm/sMV DECEL BOCT683ic MV A Tgeitbpf72.2cm/sE/A Ratio2.2 Pulmonary Valve PV Peak Gyxbdmnb76.3cm/s Tricuspid Valve TR P. Yzfxbwjj351on/sTR Peak Gr.43mmHg LEFT VENTRICLE The left ventricle is normal size. There is moderate to severe concentric left ventricular hypertroph y. The left ventricular systolic function is moderately impaired. The Ejection Fraction is estimated at 30-35%. There is global hypokinesis of the left ventricle. Diastolic function is unable to be asse ssed due to atrial fibrillation. No left ventricle thrombus noted on this study. There is no ventricu lar septal defect visualized. There is no left ventricular aneurysm. There is no mass noted in the le ft ventricle. RIGHT VENTRICLE The right ventricle is normal size. The right ventricle is borderline hypertrophied. Systolic functio n is borderline reduced. ATRIA The left atrium is moderately dilated. The right atrium is moderately dilated. The interatrial septum is intact with no evidence for an atrial septal defect or patent foramen ovale as noted on 2-D or Do ppler imaging. AORTIC VALVE The aortic valve is calcified but opens well. Doppler and Color Flow revealed mild aortic regurgitati on. There is no significant aortic valvular stenosis. There is no aortic valvular vegetation. MITRAL VALVE The mitral valve is normal in structure and function. There is no evidence of mitral valve prolapse. There is no mitral valve stenosis. Doppler and Color-flow revealed mild mitral regurgitation. TRICUSPID VALVE The tricuspid valve is normal in structure and function. Doppler and Color Flow revealed moderate tri cuspid regurgitation. There is no tricuspid valve prolapse or vegetation. There is no tricuspid valve stenosis. PULMONIC VALVE The pulmonary valve is normal in structure and function. There is trivial pulmonic regurgitation. The re is no pulmonic valvular stenosis. GREAT VESSELS The aortic root is normal in size. The ascending aorta is normal in size. The pulmonary artery is nor mal. The IVC is mildly dilated with blunted inspiratory response. PERICARDIAL EFFUSION There is no pleural effusion. There is no evidence of significant pericardial effusion. Critical Notification Critical Value: No <Conclusion> The left ventricular systolic function is moderately impaired. The Ejection Fraction is estimated at 30-35%. There is moderate to severe concentric left ventricular hypertrophy. The left atrium is moderately dilated. Mild aortic regurgitation. Mild mitral regurgitation. Moderate tricuspid regurgitation. Estimated PAP 53 mmHg. There is no evidence of significant pericardial effusion. Signed by : Orville Medina, Electronically Approved : 12/10/2021 08:30:04
[2021-12-10 08:38] VITALS: BP 141/88
[2021-12-10] MEDS: METOPROLOL SUCC 24HR ER 50 MG TAB.ER.24H. PO SCH (08:39)
[2021-12-10] MEDS: ISOSORBIDE MONONITRATE ER 30 MG TAB.ER.24H PO SCH (08:39)
[2021-12-10] MEDS: LISINOPRIL 20 MG TABLET PO SCH (08:39)
[2021-12-10] MEDS: FUROSEMIDE 40 MG TABLET. PO SCH (08:40)
[2021-12-10 10:36] VITALS: BP 145/77
[2021-12-10] MEDS ORDERED: WARF4TAB64 PO (12:56)
[2021-12-10] MEDS ORDERED: METO50TA4 PO (12:56)
[2021-12-10] MEDS ORDERED: HYDR-2869 PO (12:56)
[2021-12-10] MEDS ORDERED: PANT40TA77 PO (12:56)
[2021-12-10] MEDS ORDERED: FURO40TA4 PO (12:56)
[2021-12-10] MEDS ORDERED: LISI-130 PO (12:56)
--- NOTE | 2021-12-10 13:11 | PDOC3 ---
Discharge Summary Visit Information Final Diagnosis Problems Medical Problems: (1) Acute exacerbation of congestive heart failure Status: Acute (2) Atrial fibrillation with RVR Status: Acute (3) Elevated troponin level Status: Acute (4) History of cocaine use Status: Acute (5) Hypertensive emergency Status: Acute (6) Noncompliance Status: Acute Brief Hospital Course Allergies Allergies Coded Allergies Type Severity Reaction Last Updated Verified No Known Drug Allergies 12/06/21 No Vital Signs Vital Signs Date Time Temp Pulse Resp B/P (MAP) Pulse Ox O2 Delivery O2 Flow Rate FiO2 12/10/21 10:36 97.8 83 16 145/77 (99) 96 Room Air 97.8 Lab Results Laboratory Tests Test 12/09/21 05:20 White Blood Count 6.6 x10^3/uL (4.0-11.0) Red Blood Count 4.29 x10^6/uL (4.30-5.70) Hemoglobin 13.6 g/dL (13.0-17.5) Hematocrit 40.9 % (39.0-53.0) Mean Corpuscular Volume 95 fL (79-100) Mean Corpuscular Hemoglobin 32 pg (25-35) Mean Corpuscular Hemoglobin Concent 33 g/dL (31-37) Red Cell Distribution Width 14.1 % (11.5-14.5) Platelet Count 130 x10^3/uL (140-400) Neutrophils (%) (Auto) 65 % (31-73) Lymphocytes (%) (Auto) 24 % (24-48) Monocytes (%) (Auto) 9 % (0-9) Eosinophils (%) (Auto) 1 % (0-3) Basophils (%) (Auto) 1 % (0-3) Neutrophils # (Auto) 4.3 x10^3/uL (1.8-7.7) Lymphocytes # (Auto) 1.6 x10^3/uL (1.0-4.8) Monocytes # (Auto) 0.6 x10^3/uL (0.0-1.1) Eosinophils # (Auto) 0.1 x10^3/uL (0.0-0.7) Basophils # (Auto) 0.1 x10^3/uL (0.0-0.2) Sodium Level 134 mmol/L (136-145) Potassium Level 3.6 mmol/L (3.5-5.1) Chloride Level 100 mmol/L (98-107) Carbon Dioxide Level 29 mmol/L (21-32) Anion Gap 5 (6-14) Blood Urea Nitrogen 29 mg/dL (8-26) Creatinine 1.4 mg/dL (0.7-1.3) Estimated GFR (Cockcroft-Gault) 61.5 Glucose Level 93 mg/dL (70-99) Calcium Level 7.7 mg/dL (8.5-10.1) Magnesium Level 2.0 mg/dL (1.8-2.4) Brief Hospital Course Mr. Matthews is a 66 old [sex] who presented with [ ] Discharge Information Scheduled Furosemide (Furosemide) 40 Mg Tablet, 40 MG PO DAILY for HTN for 30 Days, #30 Ref 3 Prescribed by: PALAK ANDERSON MD on 12/10/21 1256 Hydralazine Hcl (Hydralazine Hcl) 50 Mg Tablet, 50 MG PO TID for CHF/HTN for 30 Days, #90 Ref 3 Prescribed by: PALAK ANDERSON MD on 12/10/21 1256 Lisinopril (Lisinopril) 40 Mg Tablet, 20 MG PO DAILY for CHF/HTN for 30 Days, #15 Ref 3 Prescribed by: PALAK ANDERSON MD on 12/10/21 1256 Metoprolol Succinate (Toprol XL) 50 Mg Tab.er.24h, 50 MG PO DAILY for CHF/HTN for 30 Days, #30 Ref 3 Prescribed by: PALAK ANDERSON MD on 12/10/21 1256 Pantoprazole Sodium (Protonix ) 40 Mg Tablet.dr, 40 MG PO DAILYAC for GERD for 30 Days, #30 Ref 3 Prescribed by: PALAK ANDERSON MD on 12/10/21 1256 Warfarin Sodium (Warfarin Sodium) 4 Mg Tablet, 4 MG PO DAILY for Atrial fibrillation/CHF for 30 Days, #30 Ref 3 Prescribed by: PALAK ANDERSON MD on 12/10/21 1256 Justicifation of Admission Dx: Justifications for Admission: Justification of Admission Dx: N/A PALAK ANDERSON MD Dec 10, 2021 13:11
[2021-12-10] MEDS ORDERED: ISOS60TA55 PO (13:13)
--- NOTE | 2021-12-10 13:49 | PDOC ---
ARDEN WISE APRN 12/10/21 1349: CARDIO Progress Notes Date and Time Date of Service 12/10/21 Time of Evaluation 1110 Subjective Subjective: No Chest Pain, No shortness of breath, No Palpitations Vitals Vitals Vital Signs Date Time Temp Pulse Resp B/P (MAP) Pulse Ox O2 Delivery O2 Flow Rate FiO2 12/10/21 10:36 97.8 83 16 145/77 (99) 96 Room Air 97.8 Weight Weight [ ] Input and Output Intake and Output Intake and Output 12/10/21 07:00 Intake Total 1860 ml Output Total 2950 ml Balance -1090 ml Intake Oral 1860 ml Output Urine Total 2950 ml Microbiology Micro Microbiology 12/07/21 Blood Culture - Preliminary, Resulted NO GROWTH AFTER 3 DAYS Physical Exam HEENT: Neck Supple W Full Motion Chest: Symmetric LUNGS: Other (diminished bases) Heart: irregularly irregular (AFIB/flutter, rate controlled ) Abdomen: Soft N/T Extremities: Other (trace bilateral LE edema ) Neurology: alert, oriented, follow commands Assessment Assessment 1. NSTEMI; most probable type II, demand ischemia in setting of a/c CHF, accelerated HTN, and AFIB with RVR 2. Acute on chronic systolic CHF; appears compensated 3. AFIB with RVR; Remains in AFIB. rate controlled. 4. Accelerated HTN; better controlled 5. Cardiomyopathy; Echo with LVEF 30-35% and severe LVH. suspected NICM 6. CKD 7. Polysubstance abuse. Recommendations Toprol for rate control HF, optimization Lasix therapy Continue hydralazine, lisinopril, Imdur Xarelto for stroke prophylaxis Reinforced importance of cessation from recreational drug use and compliance with medical therapy Follow up in our office with Dr. Hahn If compliance is established and her refrains from drug use, can consider MARIA L/CVN and ischemic evaluation. Justicifation of Admission Dx: Justifications for Admission: Justification of Admission Dx: N/A TARAS HAHN MD 12/10/21 1629: CARDIO Progress Notes Plan Plan The patient was seen and interviewed as well as examined at the bedside. The chart was reviewed. The case was discussed. Agree with the plan of care. ARDEN WISE APRN Dec 10, 2021 13:49 TARAS HAHN MD Dec 10, 2021 16:29
--- NOTE | 2021-12-10 14:47 | PDOC ---
[employer] PROGRESS NOTE Date of Service DOS: DATE: 12/10/21 TIME: 14:45 Chief Complaint Chief Complaint Hypertensive urgency Afib RVR ANILA due to vasomotor nephropathy Elevated BNP suggestive of acute volume overload Acute CHF exacerbation Cocaine positivity Elevated troponin suggestive of type II demand ischemia Thrombocytopenia History of CHF, unknown EF History of hypertension History of cocaine and tobacco abuse Admit to hospitalist service for further management IV antihypertensive regimen to maintain systolic blood pressures between [id number] Continue telemetry monitoring Continue diltiazem Continue heparin drip for DVT prophylaxis Protonix GI prophylaxis Trend troponins Cardiology consult Cardiac diet CODE STATUS assumed full code Discussed with RN and Disposition inpatient management as above DPOA: Cousin History of Present Illness History of Present Illness 12/07: Patient evaluated and examined at bedside. He was resting in bed eating his lunch. No complaints to me. Still on several drips. Cards consulted. Blood pressure improved continue heparin drip. Also on nitro drip. Echo ordered. 12/08: Seen bedside. Chest pain resolving. No shortness of breath. BP still up. Creatinine 1.5, NA 132, mag 1.6, high-sensitivity troponin came down to 700, heart rate in the low 80s looks like underlying flutter rhythm on Cardizem 5 mg/hr IV. transitioned to PO cardizem then cardiology reconciled his medications appropriately and found that he was on carvedilol 25 mg twice daily, Imdur, hydralazine, Xarelto. Transition to Toprol-XL. 12/09: No chest pain. BP better controlled. Await echocardiogram. Transition back to home meds but changed to Toprol-XL instead of carvedilol. He notes his Imdur and Xarelto were over $500 and he did not want to pay for them. 12/10: No chest pain BP controlled. Echo With EF 30%. His meds are in the [employer] $4 list but he cannot take Xarelto because he cannot afford it he is okay with warfarin therapy and will follow INR at [facility] but for now I will monitor discussed with cardiology. Vitals/I&O Vitals/I&O: Vital Signs Date Time Temp Pulse Resp B/P (MAP) Pulse Ox O2 Delivery O2 Flow Rate FiO2 12/10/21 14:06 86 138/97 12/10/21 10:36 97.8 16 96 Room Air 97.8 I & O 2/1/22 2/1/22 2/2/22 15:00 23:00 07:00 Intake Total 480 ml 1140 ml 240 ml Output Total 600 ml 850 ml 1500 ml Balance -120 ml 290 ml -1260 ml Physical Exam General: Alert, Oriented X3, Cooperative Heart: Regular rate, Normal S1, Normal S2 Lungs: Clear Abdomen: Normal bowel sounds, Soft, No tenderness Extremities: Other (lower extremity edema) Skin: No significant lesion Assessment and Plan Assessmemt and Plan Problems Medical Problems: (1) Acute exacerbation of congestive heart failure Status: Acute (2) Atrial fibrillation with RVR Status: Acute (3) Elevated troponin level Status: Acute (4) History of cocaine use Status: Acute (5) Hypertensive emergency Status: Acute (6) Noncompliance Status: Acute Comment Review of Relevant I have reviewed the following items liya (where applicable) has been applied. Medications: Current Medications Medications (Trade) Dose Ordered Sig/Isaias Route PRN Reason Start Time Stop Time Status Last Admin Dose Admin Rivaroxaban (Xarelto) 20 mg DAILYWSUP PO 12/09/21 17:00 12/09/21 16:56 Isosorbide Mononitrate (Imdur) 60 mg DAILY PO 12/10/21 09:00 12/10/21 08:39 Justifications for Admission Other Justification PALAK ANDERSON MD Dec 10, 2021 14:47
[2021-12-10 15:00] VITALS: BP 138/97
[2021-12-10] MEDS: RIVAROXABAN 10 MG TABLET. PO SCH (17:08)
--- NOTE | 2021-12-10 18:27 | NUR ---
Patient states he is ready for cab to come get him, manny called. Patient had to be waken up from a nap to talk to about discharge, discharge papers given to patient & he stated he understood it that he did not need to go over it with this RN. Patient wants to sign discharge signature page when he "gets up". Will have night RN attempt this again. Addendum: 12/10/21 at 1924 by MICH FAY RN Patient signed discharge paperwork. Paperwork included lots of education, follow ups, med list, coumadin education, RX for PT/INR lab draws. Still awaiting cab. Report given to KM Cardenas.
[2021-12-10 19:00] VITALS: BP 139/83
[2021-12-10 22:40] VITALS: BP 138/82
[2021-12-11 02:36] VITALS: BP 135/88
[2021-12-11 04:24] LABS: HEMATOCRIT 41.3 % (39.0-53.0); HEMOGLOBIN 13.8 g/dL (13.0-17.5); RED BLOOD COUNT 4.31 x10^6/uL (4.30-5.70); RED CELL DISTRIBUTION WIDTH 14.4 % (11.5-14.5); WHITE BLOOD COUNT 6.5 x10^3/uL (4.0-11.0)
[2021-12-11 07:00] VITALS: BP 173/103
[2021-12-11] MEDS: METOPROLOL SUCC 24HR ER 50 MG TAB.ER.24H. PO SCH (09:02)
[2021-12-11] MEDS: PANTOPRAZOLE 40 MG TABLET.DR. PO SCH (09:03)
[2021-12-11] MEDS: ISOSORBIDE MONONITRATE ER 30 MG TAB.ER.24H PO SCH (09:03)
[2021-12-11] MEDS: FUROSEMIDE 40 MG TABLET. PO SCH (09:03)
[2021-12-11] MEDS: LISINOPRIL 20 MG TABLET PO SCH (09:04)
--- NOTE | 2021-12-11 09:32 | PDOC ---
ARDEN WISE PROCESS DESIGNER 12/11/21 0932: CARDIO Progress Notes Date and Time Date of Service 12/11/21 Time of Evaluation 0930 Subjective Subjective: No Chest Pain Vitals Vitals Vital Signs Date Time Temp Pulse Resp B/P (MAP) Pulse Ox O2 Delivery O2 Flow Rate FiO2 12/11/21 09:04 78 173/103 12/11/21 02:36 98.0 20 98 Room Air 98.0 Weight Weight [ ] Input and Output Intake and Output Intake and Output 12/11/21 07:00 Intake Total 940 ml Output Total 800 ml Balance 140 ml Intake Oral 940 ml Output Urine Total 800 ml # Voids 1 # Bowel Movements 1 Laboratory Labs Laboratory Tests Test 12/11/21 02:55 White Blood Count 6.5 x10^3/uL (4.0-11.0) Red Blood Count 4.31 x10^6/uL (4.30-5.70) Hemoglobin 13.8 g/dL (13.0-17.5) Hematocrit 41.3 % (39.0-53.0) Mean Corpuscular Volume 96 fL (79-100) Mean Corpuscular Hemoglobin 32 pg (25-35) Mean Corpuscular Hemoglobin Concent 34 g/dL (31-37) Red Cell Distribution Width 14.4 % (11.5-14.5) Platelet Count 156 x10^3/uL (140-400) Microbiology Micro Microbiology 12/07/21 Blood Culture - Preliminary, Resulted NO GROWTH AFTER 4 DAYS Physical Exam HEENT: Neck Supple W Full Motion Chest: Symmetric LUNGS: Other (diminished bases) Heart: irregularly irregular (AFIB/flutter, rate controlled ) Abdomen: Soft N/T Extremities: Other (trace bilateral LE edema ) Neurology: alert, oriented, other (doesn't want to wake up to talk) Assessment Assessment 1. NSTEMI; most probable type II, demand ischemia in setting of a/c CHF, a ccelerated HTN, and AFIB with RVR 2. Acute on chronic systolic CHF; appears compensated 3. AFIB with RVR; Remains in AFIB. rate controlled. 4. Accelerated HTN; better controlled 5. Cardiomyopathy; Echo with LVEF 30-35% and severe LVH. suspected NICM 6. CKD 7. Polysubstance abuse. Recommendations Toprol for rate control HF, optimization Lasix therapy Continue hydralazine, lisinopril, Imdur anticoagulation transitioned to warfarin as patient is not able to afford NOAC Follow up in our office with Dr. Hahn. Our contact information was provided If compliance is established and her refrains from drug use, can consider T EE/CVN and ischemic evaluation. Justicifation of Admission Dx: Justifications for Admission: Justification of Admission Dx: N/A TARAS HAHN MD 12/11/21 1602: CARDIO Progress Notes Plan Plan The patient was seen and interviewed as well as examined at the bedside. The chart was reviewed. The case was discussed. Agree with the plan of care. ARDEN WISE APRN Dec 11, 2021 09:32 TARAS HAHN MD Dec 11, 2021 16:02
[2021-12-11 11:00] VITALS: BP 140/95
--- NOTE | 2021-12-11 12:07 | NUR ---
SS following up with discharge planning. SS reviewed pt chart and discussed with pt RN. Pt is currently on room air. COVID19 negative. Discharge order on the chart. [facility] was contacted for transportation.
--- NOTE | 2021-12-11 12:34 | PDOC ---
[employer] PROGRESS NOTE Date of Service DOS: DATE: 12/11/21 TIME: 12:33 Chief Complaint Chief Complaint Hypertensive urgency Afib RVR ANILA due to vasomotor nephropathy Elevated BNP suggestive of acute volume overload Acute CHF exacerbation Cocaine positivity Elevated troponin suggestive of type II demand ischemia Thrombocytopenia History of CHF, unknown EF History of hypertension History of cocaine and tobacco abuse Admit to hospitalist service for further management IV antihypertensive regimen to maintain systolic blood pressures between [id number] Continue telemetry monitoring Continue diltiazem Continue heparin drip for DVT prophylaxis Protonix GI prophylaxis Trend troponins Cardiology consult Cardiac diet CODE STATUS assumed full code Discussed with RN and Disposition inpatient management as above DPOA: Cousin History of Present Illness History of Present Illness 12/07: Patient evaluated and examined at bedside. He was resting in bed eating his lunch. No complaints to me. Still on several drips. Cards consulted. Blood pressure improved continue heparin drip. Also on nitro drip. Echo ordered. 12/08: Seen bedside. Chest pain resolving. No shortness of breath. BP still up. Creatinine 1.5, NA 132, mag 1.6, high-sensitivity troponin came down to 700, heart rate in the low 80s looks like underlying flutter rhythm on Cardizem 5 mg/hr IV. transitioned to PO cardizem then cardiology reconciled his medications appropriately and found that he was on carvedilol 25 mg twice daily, Imdur, hydralazine, Xarelto. Transition to Toprol-XL. 12/09: No chest pain. BP better controlled. Await echocardiogram. Transition back to home meds but changed to Toprol-XL instead of carvedilol. He notes his Imdur and Xarelto were over $500 and he did not want to pay for them. 12/10: No chest pain BP controlled. Echo With EF 30%. His meds are in the [employer] $4 list but he cannot take Xarelto because he cannot afford it he is okay with warfarin therapy and will follow INR at [facility] but for now I will monitor discussed with cardiology. 12/11: Discharge delayed due to taxi not Picking him up overnight due to inclement weather. #1 elevated blood pressure 174 systolic. Chest pain-free today feeling well able to go get his medications. Counseled extensively on cocaine cessation. Vitals/I&O Vitals/I&O: Vital Signs Date Time Temp Pulse Resp B/P (MAP) Pulse Ox O2 Delivery O2 Flow Rate FiO2 12/11/21 11:00 97.6 87 18 140/95 (110) 97 4.0 97.6 12/11/21 08:00 Room Air I & O 0 12/10/21 12/10/21 12/11/21 15:00 23:00 07:00 Intake Total 440 ml 500 ml Output Total 300 ml 500 ml Balance -300 ml -60 ml 500 ml Physical Exam General: Alert, Oriented X3, Cooperative Heart: Regular rate, Normal S1, Normal S2 Lungs: Clear Abdomen: Normal bowel sounds, Soft, No tenderness Extremities: Other (lower extremity edema) Skin: No significant lesion Labs Labs: Laboratory Tests Test 12/11/21 02:55 White Blood Count 6.5 x10^3/uL (4.0-11.0) Red Blood Count 4.31 x10^6/uL (4.30-5.70) Hemoglobin 13.8 g/dL (13.0-17.5) Hematocrit 41.3 % (39.0-53.0) Mean Corpuscular Volume 96 fL (79-100) Mean Corpuscular Hemoglobin 32 pg (25-35) Mean Corpuscular Hemoglobin Concent 34 g/dL (31-37) Red Cell Distribution Width 14.4 % (11.5-14.5) Platelet Count 156 x10^3/uL (140-400) Assessment and Plan Assessmemt and Plan Problems Medical Problems: (1) Acute exacerbation of congestive heart failure Status: Acute (2) Atrial fibrillation with RVR Status: Acute (3) Elevated troponin level Status: Acute (4) History of cocaine use Status: Acute (5) Hypertensive emergency Status: Acute (6) Noncompliance Status: Acute Comment Review of Relevant I have reviewed the following items liya (where applicable) has been applied. Justifications for Admission Other Justification PALAK ANDERSON MD Dec 11, 2021 12:34
[2021-12-11 14:58] VITALS: BP 165/91
[2021-12-11] MEDS: RIVAROXABAN 10 MG TABLET. PO SCH (18:18)
--- NOTE | 2021-12-11 18:39 | NUR ---
Multiple calls out to [facility] for cab for patient to discharge, they never showed up. Patient finally found a personal ride this evening & discharged at 1839.
== END 2021-12-11 18:39 | disposition home health service (06) | DRG 280 ==
LOC: ER 12:09 → 6 SOUTH 16:07
PROVIDERS: ADMIT Internal Medicine; ATTEND Internal Medicine
DX: I13.0 Hypertensive heart and chronic kidney disease with heart failure and stage 1 through stage 4 chronic kidney disease, or unspecified chronic kidney disease (principal); N17.0 Acute kidney failure with tubular necrosis; I21.A1 Myocardial infarction type 2; I50.43 Acute on chronic combined systolic (congestive) and diastolic (congestive) heart failure; I16.1 Hypertensive emergency; K92.2 Gastrointestinal hemorrhage, unspecified; I48.91 Unspecified atrial fibrillation; E78.00 Pure hypercholesterolemia, unspecified; E78.5 Hyperlipidemia, unspecified; E83.42 Hypomagnesemia; F14.90 Cocaine use, unspecified, uncomplicated; F17.200 Nicotine dependence, unspecified, uncomplicated; I42.9 Cardiomyopathy, unspecified; K21.9 Gastro-esophageal reflux disease without esophagitis; N18.9 Chronic kidney disease, unspecified; Z79.899 Other long term (current) drug therapy; Z91.19 Patient's noncompliance with other medical treatment and regimen; F41.9 Anxiety disorder, unspecified; Z20.822 Contact with and (suspected) exposure to COVID-19
CPT/HCPCS: 36415; 71045; 80048; 80053; 80061; 80307; 81001; 82550; 83605; 83735; 83880; 84100; 84443; 84484; 85025; 85027; 85610; 85730; 87040; 87428; 93005; 93306; 96365; 96375; J1940; J2060; J3475; J3490; U0003; U0005; 99285-25; C8929; G0378